=== PATIENT | female | born 1990 | race African-American/Black ===

== ENCOUNTER → 2017-03-29 | Outpatient (CLI) | payer MEDICAID, OTHER ==
[~2017-03-29] MED LIST: AUGM500T7 PO; METR1TAB76 PO; [UNRECOGNIZED DRUG - CODE] PO
== END ==
LOC: HPND 07:56
PROVIDERS: ATTEND Obstetrics & Gynecology
DX: O30.042 Twin pregnancy, dichorionic/diamniotic, second trimester (principal)
CPT/HCPCS: 76816

== ENCOUNTER → 2017-04-28 | Outpatient (CLI) | payer MEDICAID ==
[~2017-04-28] MED LIST changes: -AUGM500T7 PO; -METR1TAB76 PO
== END ==
LOC: HPND 08:50
PROVIDERS: ATTEND Obstetrics & Gynecology
DX: O30.043 Twin pregnancy, dichorionic/diamniotic, third trimester (principal)
CPT/HCPCS: 76816

== ENCOUNTER 2017-05-18 20:31 | Inpatient (IN) | payer MEDICAID ==
[~2017-05-18] VITALS: Ht 177.8 cm; Wt 120.0 kg
[2017-05-18] MEDS ORDERED: LACTATED RINGER'S 1000 ML INJ 1,000 ML IV PRN (21:36)
[2017-05-18] MEDS: LACTATED RINGER'S 1000 ML INJ 1,000 ML IV SCH (21:36)
--- NOTE | 2017-05-18 21:36 | HHI.HP ---
HPI Chief Complaint IOL for IUGR Date Seen: May 18, 2017 Time Seen: 21:30 Travel History International Travel<30 Days: No Contact w/Intl Traveler<30Days: No Known Affected Area: No History of Present Illness HPI Patient is a 26-year-old with Di/Di twins at 37 weeks and 0 days who presents for induction of labor for IUGR as recommended by MFM. She currently reports some low abdominal cramping that radiates to her back and legs , but she denies any contractions, vaginal bleeding, leakage of fluid. She reports movement. Patient currently has Di/Di twins; on US 05/17 fetus A has findings suggestive of IUGR (EFW 2295g). Twin B with EFW 2468. Both twins with normal BPP's yesterday. Twin A with cephalic presentation; Twin B with transverse positioning. Per MFM; delivery recommended between 37-38 weeks. Per review of records: patient with normal lab profile. Patient has a UTI and vaginosis earlier in which was treated. GBS not yet known. The patient strongly desires a vaginal delivery and declines a . We discussed that she may need an emergency delivery if there are problems with the second twin. Patient understands increased risk of cesarian delivery because of transverse position of twin B. History Past Medical History Narrative Medical UTI earlier in [place], mild dysplasia, needs colpo per EMR scoliosis Obstetric History Obstetric History Previous was uncomplicated with uncomplicated vaginal delivery of full -term normal birthweight boy. Current gestation with DI/Di twins; fetus A with IUGR, cephalic. fetus B transverse . Past Surgical History Narrative Surgical Appendectomy at 7 years old Family History Narrative Family History Per EMR, child with autism Family History: Negative Social History Narrative Social History Patient lives at home with her and son. Alcohol Use: No Tobacco Use: No Substance Abuse: No Allergies-Medications (Allergen,Severity, Reaction): Coded Allergies: No Known Allergies (Verified Adverse Reaction, Unknown, 02/24/17) Home Meds Active Scripts W/Fe Polysacch Cmplx- (Duet Dha 400 25-1 & 400 mg) 25-1-400MG Mis, 11 CAPLET PO DAILY for 30 Days, #30 CAP 3 Refills Prov:Yandy Yan CNM [facility] 02/24/17 Review of Systems Except as stated in HPI: all other systems reviewed are Neg Physical Exam BP 115/166, heart rate 96, respiratory rate 18, temperature 97.4, pulse ox 99%, pain 0 Narrative GENERAL: Well-nourished, well-developed patient. SKIN: Warm and dry. HEAD: Normocephalic and atraumatic. EYES: No scleral icterus. No injection or drainage. ENT: No nasal drainage noted. Mucous membranes pink. Airway patent. NECK: Supple, trachea midline. No JVD. CARDIOVASCULAR: Regular rate and rhythm without murmurs, gallops, or rubs. RESPIRATORY: Breath sounds equal bilaterally. No accessory muscle use. ABDOMEN/GI: Abdomen soft, non-tender, bowel sounds present, no rebound, no guarding Gravid to 40 weeks size GENITOURINARY: exam performed with Dr. Khoury External Genitalia: intact and normal in appearance Dilatation: 5-6 cm Effacement: 80% Station: -2 Presentation: vertex Membranes: intact Uterine Contractions: irregular q1-5min FHT's: Category: Cat I Baseline: red 130, blue 140 Reactive: + reactivity Variability: moderate Decels: none noted EXTREMITIES: No cyanosis or edema. BACK: Nontender without obvious deformity. NEUROLOGICAL: Awake and alert. Motor and sensory grossly within normal limits. Five out of 5 muscle strength in all muscle groups. Normal speech. Caprini VTE Risk Assessment Caprini VTE Risk Assessment: No/Low Risk (score <= 1) Caprini Risk Assessment Model Point Value = 1 Point Value = 2 Point Value = 3 Point Value = 5 Age 41-60 Minor surgery BMI > 25 kg/m2 Swollen legs Varicose veins or History of unexplained or recurrent spontaneous Oral contraceptives or hormone replacement Sepsis (< 1 month) Serious lung disease, including pneumonia (< 1 month) Abnormal pulmonary function Acute myocardial infarction Congestive heart failure (< 1 month) History of inflammatory bowel disease Medical patient at bed rest Age 61-74 Arthroscopic surgery Major open surgery (> 45 min) Laparoscopic surgery (> 45 min) Malignancy Confined to bed (> 72 hours) Immobilizing plaster cast Central venous access Age >= 75 History of VTE Family history of VTE Factor V Leiden Prothrombin [id number] Lupus anticoagulant Anticardiolipin antibodies Elevated serum homocysteine Heparin-induced thrombocytopenia Other congenital or acquired thrombophilia Stroke (< 1 month) Elective arthroplasty Hip, pelvis, or leg fracture Acute spinal cord injury (< 1 month) Prophylaxis Regimen Total Risk Factor Score Risk Level Prophylaxis Regimen 0-1 Low Early ambulation 2 Moderate Order ONE of the following: *Sequential Compression Device (SCD) *Heparin 5000 units SQ BID 3-4 Higher Order ONE of the following medications: *Heparin 5000 units SQ TID *Enoxaparin/Lovenox 40 mg SQ daily (WT < 150 kg, CrCl > 30 mL/min) *Enoxaparin/Lovenox 30 mg SQ daily (WT < 150 kg, CrCl > 10-29 mL/min) *Enoxaparin/Lovenox 30 mg SQ BID (WT < 150 kg, CrCl > 30 mL/min) AND/OR *Sequential Compression Device (SCD) 5 or more Highest Order ONE of the following medications: *Heparin 5000 units SQ TID (Preferred with Epidurals) *Enoxaparin/Lovenox 40 mg SQ daily (WT < 150 kg, CrCl > 30 mL/min) *Enoxaparin/Lovenox 30 mg SQ daily (WT < 150 kg, CrCl > 10-29 mL/min) *Enoxaparin/Lovenox 30 mg SQ BID (WT < 150 kg, CrCl > 30 mL/min) AND *Sequential Compression Device (SCD) Data Data Vital Signs Reviewed: Yes Assessment/Plan Problem List: (1) IUGR (intrauterine growth restriction) affecting care of mother ICD Codes: O36.5990 - Maternal care for other known or suspected poor growth, unspecified trimester, not applicable or unspecified (2) IUGR (intrauterine growth retardation) of ICD Codes: P05.9 - affected by slow intrauterine growth, unspecified (3) IUGR, ICD Codes: O36.5990 - Maternal care for other known or suspected poor growth, unspecified trimester, not applicable or unspecified (4) Twin gestation in third trimester ICD Codes: O30.003 - Twin , unspecified number of placenta and unspecified number of amniotic sacs, third trimester (5) Transverse presentation, antepartum ICD Codes: O32.2XX0 - Maternal care for transverse and oblique lie, not applicable or unspecified Assessment and Plan Patient is a 26-year-old with Di/Di twins at 37 weeks and 0 days who presents for induction of labor for IUGR as recommended by [facility]. Cervical exam shows 5-6 cm of dilation, 80% effacement, -2 station. On US 05/17, fetus A has findings suggestive of IUGR (EFW 2295g). Twin B with EFW 2468g. Both twins with normal 10/10 BPP's yesterday. Twin A with cephalic presentation; Twin B with transverse positioning. Per MFM; delivery recommended between 37-38 weeks. Per review of records: patient with normal lab profile. Patient had a UTI and vaginosis earlier in which was treated. GBS not yet known. The patient strongly desires a vaginal delivery and declines a . We discussed that she may need an emergency delivery if there are problems with the second twin. 1. IUGR affecting di/di twin gestation; twin A cephalic, twin B transverse; GBS not yet known. -Plan vaginal delivery. Patient understands increased risk of cesarian delivery because of transverse position of twin B. -Plan to AROM tomorrow morning in preparation for delivery -Admit patient -Routine labor and delivery admission labs including ABO/Rh blood type, hold clot, type and screen, CBC, UDS, GBS, UA -LR IV -IV pain medication when necessary -Monitor vital signs, heart rate, tocometry -Plan for Epidural s/d/w Dr. Iraida Temple,Delfino Olson MD R2 May 18, 2017 21:35
[2017-05-18] MEDS ORDERED: ONDANSETRON HCL 4 MG/2 ML VIAL IV PUSH PRN (21:45)
[2017-05-18] MEDS ORDERED: LIDOCAINE HCL 1% 50 ML VIAL I-DERMAL PRN (21:45)
[2017-05-18] MEDS ORDERED: LIDOCAINE HCL 1% 50 ML VIAL INFIL PRN (21:45)
[2017-05-18] MEDS ORDERED: DINOPROSTONE 10 MG VAG INSERT VAGINAL ONE (21:45)
[2017-05-18] MEDS ORDERED: CITRIC ACID-SODIUM CITRATE LIQ 30 ML UDC PO SCH (21:45)
[2017-05-18] MEDS ORDERED: SODIUM CHLORID 0.9% 500 ML INJ 500 ML IV PRN (21:45)
[2017-05-18] MEDS ORDERED: MINERAL OIL 10 ML VIAL TOPICAL PRN (21:45)
[2017-05-18] MEDS ORDERED: OXYTOCIN 30 UNITS-500ML PREMIX 500 ML IV ONE (21:45)
[2017-05-18] MEDS ORDERED: SODIUM CHLOR 0.9% 1000 ML INJ 1,000 ML IV PRN (21:56)
[2017-05-18] MEDS ORDERED: ZOLPIDEM TARTRATE 5 MG TAB PO PRN (22:15)
[2017-05-18 22:18] LABS: AUTOMATED NEUTROPHIL # 9.8 TH/MM3 (1.8-7.7); BASOPHIL % 0.3 % (0.0-2.0); EOSINOPHIL # 0.2 TH/MM3 (0-0.4); EOSINOPHIL % 1.4 % (0.0-4.0); HEMATOCRIT 33.6 % (35.0-46.0); LYMPH % 12.7 % (9.0-44.0); LYMPHOCYTE # 1.6 TH/MM3 (1.0-4.8); MEAN CELL VOLUME 91.4 FL (80.0-100.0); MEAN CORPUSCULAR HEMOGLOBIN 29.9 PG (27.0-34.0); MEAN CORPUSCULAR HGB CONC 32.7 % (32.0-36.0); MEAN PLATELET VOLUME 10.2 FL (7.0-11.0); MONO % 6.1 % (0.0-8.0); MONOCYTE # 0.7 TH/MM3 (0-0.9); NEUT % 79.5 % (16.0-70.0); PLATELET COUNT 229 TH/MM3 (150-450); RED BLOOD COUNT 3.67 MIL/MM3 (4.00-5.30); RED CELL DISTRIBUTION WIDTH 12.9 % (11.6-17.2); WHITE BLOOD COUNT 12.3 TH/MM3 (4.0-11.0)
[2017-05-18 23:22] VITALS: RESP 18
[2017-05-18] MEDS ORDERED: TYLE325T PO (23:36)
[2017-05-19] VITALS (128 sets, daily range): BP systolic 97–146; BP diastolic 51–106; PULSE 67–155; RESP 16–18; TEMP 98–99.2; O2SAT 99
[2017-05-19 00:05] LABS: BILIRUBIN, URINE NEG (NEG); BLOOD, URINE NEG (NEG); GLUCOSE,URINE NEG (NEG); KETONE, URINE NEG (NEG); MUCUS URINE FEW /lpf (OCC); NITRITE,URINE NEG (NEG); PH, URINE 6.5 (5.0-8.5); SQUAMOUS EPITHELIAL CELL URINE 1 /hpf (0-5); URINE COLOR YELLOW (YELLW/STRAW); URINE LEUKOCYTE ESTERASE TRACE (NEG)
[2017-05-19] MEDS: LACTATED RINGER'S 1000 ML INJ 1,000 ML IV SCH (05:36)
--- NOTE | 2017-05-19 07:52 | HHI.PR ---
DISHWASHING MACHINE REPAIRER Note Note Patient at 37-38 weeks gestation with di/di twin gestation with IUGR of twin A. Vertex twin a with back up transverse lie twin b. Category 1 FHR tracing x 2. Cervix 6/80/-2, posterior AROM clear copious fluid obtained. Patient is planning on epidural with labor pain. Viktoria Khoury MD May 19, 2017 07:51
[2017-05-19] MEDS ORDERED: ePHEDrine/NS 25 MG/5 ML SYRINGE ONE (08:26)
[2017-05-19] MEDS ORDERED: fentaNYL 2MCG-BUPIV 0.125% INJ 100 ML ONE (08:26)
[2017-05-19] MEDS ORDERED: fentaNYL 2MCG-BUPIV 0.125% 100 ML EPIDURAL SCH (10:15)
[2017-05-19] MEDS ORDERED: DO NOT ADMINISTER ANTICOAGULANTS PRN (10:15)
[2017-05-19] MEDS ORDERED: NO SYSTEM NARCOTICS PRN (10:15)
[2017-05-19] MEDS ORDERED: ePHEDrine/NS 25 MG/5 ML SYRINGE IV PUSH PRN (10:15)
[2017-05-19] MEDS ORDERED: LACTATED RINGER'S 1000 ML INJ 1,000 ML IV ONE (10:59)
[2017-05-19] MEDS ORDERED: OXYTOCIN 30 UNITS-500ML PREMIX 500 ML ONE (11:10)
[2017-05-19] MEDS ORDERED: LACTATED RINGER'S 1000 ML INJ 1,000 ML IV SCH (11:29)
[2017-05-19] MEDS ORDERED: ceFAZolin 2 GM PREMIX 50 ML IV SCH (12:00)
[2017-05-19] MEDS ORDERED: CITRIC ACID-SODIUM CITRATE LIQ 30 ML UDC PO SCH (12:30)
[2017-05-19] MEDS ORDERED: OXYTOCIN 30 UNITS-500ML PREMIX 500 ML IV PRN (14:45)
[2017-05-19] MEDS ORDERED: BUPIVACAINE HCL PF 0.25% 10 ML VIAL ONE (15:16)
--- NOTE | 2017-05-19 15:19 | PD.LABORPN ---
Subjective Subjective Patient is starting to feel more pressure. Objective Vital Signs Vital Signs Date Time Temp Pulse Resp B/P (MAP) Pulse Ox O2 Delivery O2 Flow Rate FiO2 05/19/17 15:01 96 134/77 (96) 05/19/17 15:00 78 05/19/17 14:50 92 05/19/17 14:49 18 05/19/17 14:46 88 135/83 (100) 05/19/17 14:45 86 05/19/17 14:40 82 05/19/17 14:35 81 05/19/17 14:31 89 128/95 (106) 05/19/17 14:30 97 05/19/17 14:25 79 05/19/17 14:20 78 05/19/17 14:15 79 121/79 (93) 05/19/17 14:15 155 05/19/17 14:01 67 117/64 (81) 05/19/17 14:00 88 05/19/17 13:55 74 05/19/17 13:50 77 05/19/17 13:46 69 122/77 (92) 05/19/17 13:45 17 05/19/17 13:45 98.2 05/19/17 13:45 73 05/19/17 13:31 70 102/58 (73) 05/19/17 13:30 18 05/19/17 13:16 80 122/72 (89) 05/19/17 13:10 73 17 05/19/17 13:05 70 05/19/17 13:01 73 125/63 (83) 05/19/17 13:00 74 05/19/17 13:00 18 05/19/17 12:55 69 05/19/17 12:50 71 05/19/17 12:46 76 127/79 (95) 05/19/17 12:45 18 05/19/17 12:45 78 05/19/17 12:40 71 05/19/17 12:35 69 05/19/17 12:31 69 127/66 (86) 05/19/17 12:30 17 05/19/17 12:30 72 05/19/17 12:25 73 05/19/17 12:20 78 05/19/17 12:16 84 125/84 (98) 05/19/17 12:15 68 05/19/17 12:15 18 05/19/17 12:10 70 05/19/17 12:05 76 05/19/17 12:01 71 126/77 (93) 05/19/17 12:00 80 18 05/19/17 11:55 87 05/19/17 11:50 79 05/19/17 11:46 82 97/52 (67) 05/19/17 11:45 98.2 05/19/17 11:45 82 05/19/17 11:40 83 05/19/17 11:35 90 05/19/17 11:31 84 05/19/17 11:30 75 05/19/17 11:30 99.2 05/19/17 11:25 81 18 05/19/17 11:20 80 05/19/17 11:16 75 117/78 (91) 05/19/17 11:15 75 05/19/17 11:12 17 05/19/17 11:10 75 05/19/17 11:05 82 05/19/17 11:01 79 130/63 (85) 05/19/17 11:00 79 18 05/19/17 10:55 78 05/19/17 10:50 79 05/19/17 10:45 17 05/19/17 10:45 82 127/85 (99) 05/19/17 10:45 79 05/19/17 10:40 88 05/19/17 10:36 77 109/74 (86) 05/19/17 10:35 80 05/19/17 10:31 87 114/60 (78) 05/19/17 10:30 78 05/19/17 10:26 79 100/59 (73) 05/19/17 10:25 81 05/19/17 10:21 76 132/79 (96) 05/19/17 10:20 87 05/19/17 10:19 18 05/19/17 10:16 74 135/77 (96) 05/19/17 10:15 86 05/19/17 10:12 17 05/19/17 10:11 83 134/73 (93) 05/19/17 10:10 84 05/19/17 10:06 90 129/80 (96) 05/19/17 10:05 82 05/19/17 10:01 78 126/66 (86) 05/19/17 10:00 82 05/19/17 09:57 16 05/19/17 09:56 82 130/77 (94) 05/19/17 09:55 76 05/19/17 09:51 85 129/78 (95) 05/19/17 09:50 81 05/19/17 09:46 79 128/64 (85) 05/19/17 09:45 18 05/19/17 09:45 76 05/19/17 09:43 69 127/72 (90) 05/19/17 09:41 81 135/100 (112) 05/19/17 09:40 79 05/19/17 09:36 77 118/64 (82) 05/19/17 09:35 88 05/19/17 09:31 89 132/106 (115) 05/19/17 09:30 90 05/19/17 09:26 78 128/74 (92) 05/19/17 09:25 77 05/19/17 09:21 84 124/82 (96) 05/19/17 09:20 80 05/19/17 09:19 17 05/19/17 09:16 84 126/77 (93) 05/19/17 09:15 98.1 05/19/17 09:15 83 05/19/17 09:15 17 05/19/17 09:11 74 140/71 (94) 05/19/17 09:10 82 05/19/17 09:05 108 05/19/17 09:05 86 143/96 (112) 05/19/17 09:01 82 146/86 (106) 05/19/17 09:00 82 05/19/17 08:57 81 136/94 (108) 05/19/17 08:46 83 124/83 (97) 05/19/17 08:45 18 05/19/17 08:31 96 131/51 (77) 05/19/17 08:30 18 05/19/17 08:23 91 140/72 (94) 05/19/17 07:29 18 Objective Pelvic Exam: Cervix: midposition Dilatation: 9-10 Effacement: 100 Station: 0 Presentation: baby A vertex, baby B transverse Membranes: AROM baby A, baby B intact Uterine Contractions: [-] FHT's: Twin A: Category: I Baseline: 120 Reactive: + Variability: moderate Decels: none Twin B Category: I Baseline: 140 Reactive: + Variability: moderate Decels: none Assessment/Plan Problem List: (1) IUGR (intrauterine growth restriction) affecting care of mother ICD Codes: O36.5990 - Maternal care for other known or suspected poor growth, unspecified trimester, not applicable or unspecified (2) IUGR (intrauterine growth retardation) of ICD Codes: P05.9 - affected by slow intrauterine growth, unspecified (3) IUGR, ICD Codes: O36.5990 - Maternal care for other known or suspected poor growth, unspecified trimester, not applicable or unspecified (4) Twin gestation in third trimester ICD Codes: O30.003 - Twin , unspecified number of placenta and unspecified number of amniotic sacs, third trimester (5) Transverse presentation, antepartum ICD Codes: O32.2XX0 - Maternal care for transverse and oblique lie, not applicable or unspecified Assessment and Plan 26-year-old with Di/Di twins at 37-1/7 weeks gestation. 1. IUP- Category I tracing for both Twins, reassuring. 2. IUGR- IOL for IUGR as recommended by MFM. On US 05/17, fetus A has findings suggestive of IUGR (EFW 2295g). Twin B with EFW 2468g. Both twins with normal 10/10 BPP's yesterday. Twin A with cephalic presentation; Twin B with transverse positioning. Per MFM; delivery recommended between 37-38 weeks. The patient strongly desires a vaginal delivery and declines a . We discussed that she may need an emergency delivery if there are problems with the second twin. 3. di/di twin gestation; twin A cephalic, twin B transverse -Plan vaginal delivery. Patient understands increased risk of cesarian delivery because of transverse position of twin B. 4. Epidural for pain control 5. GBS negative sdw Linn Gomez MD, R3 May 19, 2017 15:19
[2017-05-19] MEDS ORDERED: LIDOCAINE HCL 1% PF 5 ML AMPULE ONE (15:59)
[2017-05-19] MEDS ORDERED: WITCH HAZEL 50%/GLYCERIN 12.5% 40 PAD JAR TOPICAL PRN (16:30)
[2017-05-19] MEDS ORDERED: ALUMINUM/MAGNESIUM/SIMETH 30 ML CUP PO PRN (16:30)
[2017-05-19] MEDS ORDERED: MEASLES, MUMPS, RUBELLA VACCINE 0.5 ML VIAL SQ ONE (16:30)
[2017-05-19] MEDS ORDERED: OXYTOCIN 30 UNITS-500ML PREMIX 500 ML IV SCH (16:30)
[2017-05-19] MEDS ORDERED: DOCUSATE SODIUM 50 MG/SENNA 8.6 MG TAB PO PRN (16:30)
[2017-05-19] MEDS ORDERED: ZOLPIDEM TARTRATE 5 MG TAB PO PRN (16:30)
[2017-05-19] MEDS ORDERED: BENZOCAINE 20% TOPICAL SPRAY 60 ML CAN TOPICAL PRN (16:30)
[2017-05-19] MEDS ORDERED: ACETAMINOPHEN 325 MG TAB PO PRN (16:30)
[2017-05-19] MEDS ORDERED: ONDANSETRON ODT 4 MG TAB PO PRN (16:30)
[2017-05-19] MEDS ORDERED: IBUPROFEN 800 MG TAB PO PRN (16:30)
[2017-05-19] MEDS ORDERED: SODIUM CHLORIDE 0.9% FLUSH 10 ML FLUSH IV FLUSH PRN (16:30)
[2017-05-19] MEDS ORDERED: DIPHTH/TETANUS/ACEL PERTUSSIS (BOOSTER) 0.5 ML VIAL/PFS IM ONE (16:30)
--- NOTE | 2017-05-19 16:41 | PD.OB.DELI ---
Weeks gestation: 37 Medical induction of labor?: Yes Artificial rupture of membrane: Yes Anesthesia: Epidural Episiotomy: None Vaginal Delivery: Normal, Spontaneous Nuchal Cord: None Delayed cord clamping (45 sec): Yes : Male Delivery date: May 19, 2017 Delivery time: 16:13 One Minute : 9 Five Minute : 9 Weight: 2560g Placenta: Spontaneous delivery, Intact, 3 vessel cord Laceration: No lacerations (Minor abrasions, no repair necessary ) Estimated blood loss: 250mL Additional Information Vaginal delivery of Twin A performed in the OR. Delivery of Twin A performed by Dr. Montiel and Shanika Souza MD May 19, 2017 16:41
--- NOTE | 2017-05-19 16:44 | PD.OB.DELI ---
Weeks gestation: 37 Medical induction of labor?: Yes Artificial rupture of membrane: Yes Anesthesia: Epidural Episiotomy: None Vaginal Delivery: Normal Presentation: Transverse lie (delivered by footling breech extraction) Nuchal Cord: None Delayed cord clamping (45 sec): No : Male Delivery date: May 19, 2017 Delivery time: 16:13 One Minute : 7 Five Minute : 8 Weight: 2585g Placenta: Spontaneous delivery, Intact, 3 vessel cord Laceration: No lacerations (skid dahl) Estimated blood loss: 250cc Additional Information Vaginal delivery of Twin B performed in the OR after delivery of Twin A. Twin B was in back down transverse lie with head on maternal right, verified by bedside US. The feet were noted to be in the Maternal RUQ. The feet were manually located, grasped, and guided to the introitus while the amniotic sac remained intact. The feet were delivered vaginally at which time the amniotic sac ruptured. Traction of the hips brought the delivery to the point of the scapula on the left. Nuchal arms were noted at that time so the baby was rotated to the right allowing delivery of the left nuchal arm with soft traction on the elbow and then delivery proceeded spontaneously thereafter. Mother tolerated the delivery well. Delivery of Twin B performed by Dr. Montiel and Linn Westbrook MD, R3 May 19, 2017 16:44
[2017-05-19] MEDS ORDERED: SODIUM CHLORIDE 0.9% FLUSH 10 ML FLUSH IV FLUSH SCH (21:00)
[2017-05-20 07:30] VITALS: BP 111/64; PULSE 87; RESP 18; TEMP 98; O2SAT 97
--- NOTE | 2017-05-20 09:34 | HHI.OB ---
Subjective Post Day: 1 Remarks Patient is a 26-year-old delivered at 37 weeks and 1 day. Patient is day one after vaginal twin delivery. Patient's pain is well- controlled. Patient reports minimal bleeding. Patient reports eating and drinking without any nausea or vomiting. Patient has passed gas but has not had a bowel movement. Patient denies chest pain and shortness of breath. Patient has been ambulating; she denies lower extremity pain. Patient reports desire for oral contraception, which she will discuss with her r&d engineer at her 6 week follow-up. Patient has decided to breast-feed. Objective Vitals/I&O Vital Signs Date Time Temp Pulse Resp B/P (MAP) Pulse Ox O2 Delivery O2 Flow Rate FiO2 05/19/17 21:30 98.2 82 16 05/19/17 21:30 106/58 (74) 05/19/17 18:25 106/60 (75) 05/19/17 18:25 99.2 76 18 99 05/19/17 17:40 16 05/19/17 17:31 82 113/68 (83) 05/19/17 17:25 16 05/19/17 17:25 98.0 05/19/17 17:16 90 123/87 (99) 05/19/17 17:01 89 119/65 (83) 05/19/17 16:55 18 05/19/17 16:55 87 123/80 (94) 05/19/17 16:40 18 05/19/17 15:22 78 136/73 (94) 05/19/17 15:16 84 139/88 (105) 05/19/17 15:10 87 05/19/17 15:05 75 05/19/17 15:01 96 134/77 (96) 05/19/17 15:00 78 05/19/17 15:00 18 05/19/17 14:50 92 05/19/17 14:49 18 05/19/17 14:46 88 135/83 (100) 05/19/17 14:45 86 05/19/17 14:40 82 05/19/17 14:35 81 05/19/17 14:31 89 128/95 (106) 05/19/17 14:30 97 05/19/17 14:25 79 05/19/17 14:20 78 05/19/17 14:15 79 121/79 (93) 05/19/17 14:15 155 05/19/17 14:01 67 117/64 (81) 05/19/17 14:00 88 05/19/17 13:55 74 18 13:50 77 05/19/17 13:46 69 122/77 (92) 05/19/17 13:45 17 05/19/17 13:45 98.2 05/19/17 13:45 73 05/19/17 13:31 70 102/58 (73) 05/19/17 13:30 18 05/19/17 13:16 80 122/72 (89) 05/19/17 13:10 73 17 05/19/17 13:05 70 05/19/17 13:01 73 125/63 (83) 05/19/17 13:00 74 05/19/17 13:00 18 05/19/17 12:55 69 05/19/17 12:50 71 05/19/17 12:46 76 127/79 (95) 05/19/17 12:45 18 05/19/17 12:45 78 05/19/17 12:40 71 05/19/17 12:35 69 05/19/17 12:31 69 127/66 (86) 05/19/17 12:30 17 05/19/17 12:30 72 05/19/17 12:25 73 05/19/17 12:20 78 05/19/17 12:16 84 125/84 (98) 05/19/17 12:15 68 05/19/17 12:15 18 05/19/17 12:10 70 18 12:05 76 05/19/17 12:01 71 126/77 (93) 05/19/17 12:00 80 18 05/19/17 11:55 87 05/19/17 11:50 79 18 11:46 82 97/52 (67) 05/19/17 11:45 98.2 05/19/17 11:45 82 18 11:40 83 18 11:35 90 18 11:31 84 18 11:30 75 18 11:30 99.2 1/25/18 11:25 81 18 05/19/17 11:20 80 05/19/17 11:16 75 117/78 (91) 05/19/17 11:15 75 05/19/17 11:12 17 05/19/17 11:10 75 18 11:05 82 05/19/17 11:01 79 130/63 (85) 05/19/17 11:00 79 18 05/19/17 10:55 78 05/19/17 10:50 79 05/19/17 10:45 17 05/19/17 10:45 82 127/85 (99) 05/19/17 10:45 79 05/19/17 10:40 88 05/19/17 10:36 77 109/74 (86) 05/19/17 10:35 80 05/19/17 10:31 87 114/60 (78) 05/19/17 10:30 78 05/19/17 10:26 79 100/59 (73) 05/19/17 10:25 81 05/19/17 10:21 76 132/79 (96) 05/19/17 10:20 87 05/19/17 10:19 18 05/19/17 10:16 74 135/77 (96) 05/19/17 10:15 86 05/19/17 10:12 17 05/19/17 10:11 83 134/73 (93) 05/19/17 10:10 84 05/19/17 10:06 90 129/80 (96) 05/19/17 10:05 82 05/19/17 10:01 78 126/66 (86) 05/19/17 10:00 82 05/19/17 09:57 16 05/19/17 09:56 82 130/77 (94) 05/19/17 09:55 76 05/19/17 09:51 85 129/78 (95) 05/19/17 09:50 81 05/19/17 09:46 79 128/64 (85) 05/19/17 09:45 18 05/19/17 09:45 76 05/19/17 09:43 69 127/72 (90) 05/19/17 09:41 81 135/100 (112) 05/19/17 09:40 79 05/19/17 09:36 77 118/64 (82) 05/19/17 09:35 88 05/19/17 09:31 89 132/106 (115) 05/19/17 09:30 90 Objective Remarks GENERAL: Well-nourished, well-developed patient. CARDIOVASCULAR: Regular rate and rhythm without murmurs, gallops, or rubs. RESPIRATORY: Breath sounds equal bilaterally. No accessory muscle use. ABDOMEN/GI: Abdomen soft, minimally tender. Fundus: Firm, minimally tender at umbilicus. GENITOURINARY: Light to moderate bleeding. EXTREMITIES: No cyanosis or edema, non-tender, without signs of DVT. Medications and IVs Current Medications Medications (Trade) Dose Ordered Sig/Max Route Start Time Stop Time Status Last Admin (NS Flush) 2 ml BID IV FLUSH 05/19/17 21:00 (NS Flush) 2 ml UNSCH PRN IV FLUSH 05/19/17 16:30 (Tylenol) 650 mg Q4H PRN PO 05/19/17 16:30 (Motrin) 800 mg Q8H PRN PO 05/19/17 16:30 05/20/17 08:32 (Americaine 20% Top Spr) 1 spray Q4H PRN TOPICAL 05/19/17 16:30 05/20/17 08:32 (Tucks Pads) 1 applic QID PRN TOPICAL 05/19/17 16:30 05/20/17 08:32 (Dania-Colace) 2 tab Q12H PRN PO 05/19/17 16:30 (Ambien) 5 mg HS PRN PO 05/19/17 16:30 (Mag-Al Plus Susp Liq) 15 ml Q8H PRN PO 05/19/17 16:30 (Zofran Odt) 4 mg Q6H PRN PO 05/19/17 16:30 Assessment/Plan Problem List: (1) IUGR (intrauterine growth restriction) affecting care of mother ICD Codes: O36.5990 - Maternal care for other known or suspected poor growth, unspecified trimester, not applicable or unspecified (2) IUGR (intrauterine growth retardation) of ICD Codes: P05.9 - affected by slow intrauterine growth, unspecified (3) IUGR, ICD Codes: O36.5990 - Maternal care for other known or suspected poor growth, unspecified trimester, not applicable or unspecified (4) Twin gestation in third trimester ICD Codes: O30.003 - Twin , unspecified number of placenta and unspecified number of amniotic sacs, third trimester (5) Transverse presentation, antepartum ICD Codes: O32.2XX0 - Maternal care for transverse and oblique lie, not applicable or unspecified Assessment and Plan Patient is a 26-year-old delivered at 37 weeks and 1 day. Patient is day one after vaginal twin delivery. * Continue routine care. * Motrin and Percocet when necessary for pain. * Encourage OOB. * Pelvic rest for 6 weeks will need follow-up appointment at that time. * Patient reports desire for oral contraception, which she will discuss with her r&d engineer at her 6 week follow-up. * Anticipate discharge tomorrow. Discuss with OB hospitalist. Shanika Ca MD R1 May 20, 2017 09:34
[2017-05-20 20:30] VITALS: BP 104/62; PULSE 80; RESP 18; TEMP 97.9; O2SAT 97
[2017-05-21] MEDS ORDERED: IBUP1TAB7 PO (07:17)
[2017-05-21] MEDS ORDERED: PERI PO (07:17)
--- NOTE | 2017-05-21 07:34 | HHI.DCPOC ---
Discharge Care Plan Diagnosis: (1) care following vaginal delivery (2) Transverse presentation, antepartum Report Symptoms to Your Doctor -Temperature above 100.5 degrees -Redness, of incision or excessive or foul smelling drainage -Unusual pain or calf pain -Increased vaginal bleeding -Painful or difficulty urinating -Feelings of extreme sadness or anxiety after 2 weeks Goals to Promote Your Health * To prevent worsening of your condition and complications * To maintain your health at the optimal level Directions to Meet Your Goals Take your medications as prescribed Follow your dietary instruction Follow activity as directed Ensure plenty of rest for recovery Drink fluids for hydration Keep your appointments as scheduled Take your immunizations and boosters as scheduled If your symptoms worsen call your PCP, if no PCP go to Urgent Care Center or Emergency Room Smoking is Dangerous to Your Health. Avoid second hand smoke Call the 24-hour crisis hotline for domestic abuse at Shad Plasencia MD May 21, 2017 07:34
--- NOTE | 2017-05-21 07:34 | HHI.OB ---
Subjective Post Day: 2 Remarks day #2. AFVSS overnight. Pain well-controlled. Decreased lochia. Denies dysuria. No breast tenderness. She is feeding the baby via breast/ bottle. Appetite good. No nausea or vomiting. Endorses flatus. No bowel movement. Ambulating well. Denies calf pain, shortness of breath, or cough. Otherwise, she is doing well this morning and has no other complaints. Objective Vitals/I&O Vital Signs Date Time Temp Pulse Resp B/P (MAP) Pulse Ox O2 Delivery O2 Flow Rate FiO2 05/20/17 20:30 104/62 (76) 05/20/17 20:30 97.9 80 18 97 Objective Remarks GENERAL: Well-nourished, well-developed patient. CARDIOVASCULAR: Regular rate and rhythm without murmurs, gallops, or rubs. RESPIRATORY: Breath sounds equal bilaterally. No accessory muscle use. ABDOMEN/GI: Abdomen soft, minimally tender. Fundus: Firm, minimally tender at umbilicus. GENITOURINARY: Light to moderate bleeding. EXTREMITIES: No cyanosis or edema, non-tender, without signs of DVT. Medications and IVs Current Medications Medications (Trade) Dose Ordered Sig/Max Route Start Time Stop Time Status Last Admin (NS Flush) 2 ml BID IV FLUSH 05/19/17 21:00 05/20/17 22:15 (NS Flush) 2 ml UNSCH PRN IV FLUSH 05/19/17 16:30 (Tylenol) 650 mg Q4H PRN PO 05/19/17 16:30 (Motrin) 800 mg Q8H PRN PO 05/19/17 16:30 05/20/17 08:32 (Americaine 20% Top Spr) 1 spray Q4H PRN TOPICAL 05/19/17 16:30 05/20/17 08:32 (Tucks Pads) 1 applic QID PRN TOPICAL 05/19/17 16:30 05/20/17 08:32 (Dania-Colace) 2 tab Q12H PRN PO 05/19/17 16:30 (Ambien) 5 mg HS PRN PO 05/19/17 16:30 (Mag-Al Plus Susp Liq) 15 ml Q8H PRN PO 05/19/17 16:30 (Zofran Odt) 4 mg Q6H PRN PO 05/19/17 16:30 Assessment/Plan Problem List: (1) IUGR (intrauterine growth restriction) affecting care of mother ICD Codes: O36.5990 - Maternal care for other known or suspected poor growth, unspecified trimester, not applicable or unspecified (2) IUGR (intrauterine growth retardation) of ICD Codes: P05.9 - [place] affected by slow intrauterine growth, unspecified (3) IUGR, ICD Codes: O36.5990 - Maternal care for other known or suspected poor growth, unspecified trimester, not applicable or unspecified (4) Twin gestation in third trimester ICD Codes: O30.003 - Twin , unspecified number of placenta and unspecified number of amniotic sacs, third trimester (5) Transverse presentation, antepartum ICD Codes: O32.2XX0 - Maternal care for transverse and oblique lie, not applicable or unspecified Assessment and Plan Patient is a 26-year-old delivered at 37 weeks and 1 day. Patient is day 2 after vaginal twin delivery. * Continue routine care. * Motrin and Percocet when necessary for pain. * Encourage OOB. * Pelvic rest for 6 weeks will need follow-up appointment at that time. * Patient reports desire for oral contraception, which she will discuss with her csr [employer] at her 6 week follow-up. * Anticipate discharge today Shad Plasencia MD May 21, 2017 07:34
[2017-05-21 08:00] VITALS: BP 108/77; PULSE 91; RESP 18; TEMP 98; O2SAT 99
== END 2017-05-21 14:04 | disposition home or self-care (01) | DRG 775 ==
LOC: H2EB 20:31 → H1EA 05-19 18:05
PROVIDERS: ADMIT Obstetrics & Gynecology Obstetrics; ATTEND Obstetrics & Gynecology Obstetrics
PROC: 10E0XZZ Delivery of Products of Conception, External Approach (ICD-10-PCS; principal; 2017-05-19)
PROC: 10907ZC Drainage of Amniotic Fluid, Therapeutic from Products of Conception, Via Natural or Artificial Opening (ICD-10-PCS; 2017-05-19)
PROC: 3E033VJ Introduction of Other Hormone into Peripheral Vein, Percutaneous Approach (ICD-10-PCS; 2017-05-19)
DX: O36.5931 Maternal care for other known or suspected poor fetal growth, third trimester, fetus 1 (principal); O30.043 Twin pregnancy, dichorionic/diamniotic, third trimester; O32.2XX1 Maternal care for transverse and oblique lie, fetus 1; M41.9 Scoliosis, unspecified; Z37.2 Twins, both liveborn; Z3A.37 37 weeks gestation of pregnancy
CPT/HCPCS: 59025; 76816; 76818; 80307; 81001; 82805; 85025; 86900; 86901; 87081; 87150; 88307; 90715; J2590; J7120